=== PATIENT | male | born 1970 | race Caucasian/White ===

== ENCOUNTER 2021-08-19 03:52 | Emergency (ER) | payer BC, OTHER ==
[~2021-08-19] VITALS: Ht 172.7 cm; Wt 72.2 kg
[2021-08-19 04:07] LABS: HEMATOCRIT 38 % (40-54); MEAN PLATELET VOLUME 10.4 fL (9.0-12.2)
[2021-08-19 04:09] LABS: BASOPHILS % (AUTO) 1 % (0-10); EOSINOPHILS # (AUTO) 0.5 10^3/uL (0.0-0.3); EOSINOPHILS % (AUTO) 10 % (0-10); HEMOGLOBIN 12.9 g/dL (13.3-17.7); LYMPHOCYTES # (AUTO) 1.8 10^3/uL (1.0-4.0); LYMPHOCYTES % (AUTO) 32 % (12-44); MEAN CORPUSCULAR HEMOGLOBIN 31 pg (25-34); MEAN CORPUSCULAR HGB CONC 34 g/dL (32-36); MEAN CORPUSCULAR VOLUME 91 fL (80-99); MONOCYTES # (AUTO) 0.4 10^3/uL (0.0-1.0); MONOCYTES % (AUTO) 8 % (0-12); NEUTROPHILS # (AUTO) 2.7 10^3/uL (1.8-7.8); NEUTROPHILS % (AUTO) 49 % (42-75); PLATELET COUNT 210 10^3/uL (130-400); WHITE BLOOD COUNT 5.5 10^3/uL (4.3-11.0)
[2021-08-19] MEDS ORDERED: methylPREDNISolone 125 MG (Solu-MEDROL) VIAL IVP ONE (04:15)
[2021-08-19] MEDS ORDERED: diphenhydrAMINE 50 MG/ML INJ (BENADRYL) IVP ONE (04:15)
[2021-08-19 04:17] LABS: POTASSIUM 3.2 MMOL/L (3.6-5.0)
[2021-08-19 04:18] LABS: CALCIUM 9.3 MG/DL (8.5-10.1)
[2021-08-19 04:23] LABS: CREATININE SERUM 0.81 MG/DL (0.60-1.30)
[2021-08-19] MEDS ORDERED: POTASSIUM CL 10MEQ/50ML IVPB 50 ML IV ONE (04:45)
[2021-08-19] MEDS ORDERED: NS IV 1000 ML 1,000 ML IV SCH (04:45)
--- NOTE | 2021-08-19 05:50 | Diagnostic Imaging Report ---
INDICATION: Shortness of breath. FINDINGS: The heart size is normal. There is a patchy right basilar infiltrate. There is no pleural effusion or pneumothorax. The mediastinum is unremarkable. IMPRESSION: Patchy right basilar infiltrate possibly reflecting early pneumonia. Recommend clinical correlation. Dictated by: Dictated on workstation # [id number]
[2021-08-19] MEDS ORDERED: cefTRIAXone 1 GM PRE-MIX 50 ML IV STA (06:25)
[2021-08-19] MEDS ORDERED: AZITHROMYCIN 250 MG TAB (ZITHROMAX) PO STA (06:25)
[2021-08-19] MEDS ORDERED: RX-ALBUTEROL NEB 2.5 MG/3 ML PACK #5 IH STA (06:35)
[2021-08-19] MEDS ORDERED: PRD20T PO (06:41)
[2021-08-19] MEDS ORDERED: ALBU2.5V4 INH (06:41)
[2021-08-19] MEDS ORDERED: CEFD300C3 PO (06:41)
[2021-08-19] MEDS ORDERED: AZIT250T12 PO (06:41)
--- NOTE | 2021-08-19 06:42 | ED Respiratory ---
General Chief Complaint: Respiratory Problems Stated Complaint: ASTHMA Nursing Triage Note: History of asthma-Asthma attack this morning with out relief from typical medications Source: patient Exam Limitations: no limitations History of Present Illness Date Seen by Provider: August 19, 2021 Time Seen by Provider: 03:54 Initial Comments This 50-year-old gentleman presents to the emergency room with complaints of severe shortness of breath that started about an hour prior to arrival. He had some wheezing and cough when the extreme shortness of breath started. He denies any fever. He has history of asthma and his albuterol inhaler did not stop the wheezing or shortness of breath. He was noted to be hypoxic with oxygen saturation of 81% by EMS. This corrected with a DuoNeb treatment and oxygen administration. He was satting in the mid 90s on room air after completing his treatment. There is significantly decreased breath sounds in the right lung which had improved by the time of arrival. Wheezing was noted. Patient reports significant seasonal allergies. Allergies and Home Medications Allergies Coded Allergies: Penicillins (Verified Allergy, Unknown, 08/19/21) Amoxicillin well tolerated Patient Home Medication List Home Medication List Reviewed: Yes Albuterol Sulfate (Albuterol Sulfate) 2.5 Mg/3 Ml (0.083 %) Vial.neb, 2.5 MG INH Q4H PRN for WHEEZING Prescribed by: ROB SHEIKH on 08/19/21640 Azithromycin (Azithromycin) 250 Mg Tablet, 250 MG PO DAILY Prescribed by: ROB SHEIKH on 08/19/21640 Cefdinir (Cefdinir) 300 Mg Capsule, 300 MG PO BID Prescribed by: ROB SHEIKH on 08/19/21640 Prednisone (Prednisone) 20 Mg Tab, 40 MG PO DAILY Prescribed by: ROB SHEIKH on 08/19/21640 Review of Systems Review of Systems Constitutional: no symptoms reported EENTM: no symptoms reported Respiratory: see HPI Cardiovascular: no symptoms reported Gastrointestinal: no symptoms reported Genitourinary: no symptoms reported Musculoskeletal: no symptoms reported Skin: no symptoms reported Psychiatric/Neurological: No Symptoms Reported Hematologic/Lymphatic: No Symptoms Reported Past [id number]-[id number]-Qtfwlj Hx Patient Social History Tobacco Use?: No Use of E-Cig and/or Vaping dev: No Substance use?: No Alcohol Use?: Yes Alcohol Frequency: Once in a while Past Medical History Surgeries: No Respiratory: Yes Asthma Currently Using CPAP: No Cardiac: No Neurological: No Genitourinary: No Gastrointestinal: No Musculoskeletal: No Endocrine: No HEENT: No Cancer: No Psychosocial: No Integumentary: No Physical Exam Vital Signs - First Documented 08/19/21 03:55 Temp 35.9 Pulse 88 Resp 24 B/P (MAP) 133/79 (97) Pulse Ox 95 O2 Delivery Simple Mask Capillary Refill : Less Than 3 Seconds Height: '" Weight: lbs. oz. 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, no motor/sensory deficits, alert, normal mood/affect, oriented x 3 Skin: normal color, warm/dry Progress/Results/Core Measures Suspected Sepsis SIRS Temperature: Pulse: 88 Respiratory Rate: 24 Laboratory Tests 08/19/21 04:01: White Blood Count 5.5 Blood Pressure 133 /79 Mean: 97 Laboratory Tests 08/19/21 04:01: Creatinine 0.81, Platelet Count 210 Results/Orders Lab Results Laboratory Tests Test 08/19/21 04:01 08/19/21 04:17 Range/Units White Blood Count 5.5 4.3-11.0 10^3/uL Red Blood Count 4.19 L 4.30-5.52 10^6/uL Hemoglobin 12.9 L 13.3-17.7 g/dL Hematocrit 38 L 40-54 % Mean Corpuscular Volume 91 80-99 fL Mean Corpuscular Hemoglobin 31 25-34 pg Mean Corpuscular Hemoglobin Concent 34 32-36 g/dL Red Cell Distribution Width 13.6 10.0-14.5 % Platelet Count 210 130-400 10^3/uL Mean Platelet Volume 10.4 9.0-12.2 fL Immature Granulocyte % (Auto) 0 % Neutrophils (%) (Auto) 49 42-75 % Lymphocytes (%) (Auto) 32 12-44 % Monocytes (%) (Auto) 8 0-12 % Eosinophils (%) (Auto) 10 0-10 % Basophils (%) (Auto) 1 0-10 % Neutrophils # (Auto) 2.7 1.8-7.8 10^3/uL Lymphocytes # (Auto) 1.8 1.0-4.0 10^3/uL Monocytes # (Auto) 0.4 0.0-1.0 10^3/uL Eosinophils # (Auto) 0.5 H 0.0-0.3 10^3/uL Basophils # (Auto) 0.0 0.0-0.1 10^3/uL Immature Granulocyte # (Auto) 0.0 0.0-0.1 10^3/uL Percent Immature Platelet Fraction 5.6 0.0-7.6 % Sodium Level 134 L 135-145 MMOL/L Potassium Level 3.2 L 3.6-5.0 MMOL/L Chloride Level 100 98-107 MMOL/L Carbon Dioxide Level 19 L 21-32 MMOL/L Anion Gap 15 H 5-14 MMOL/L Blood Urea Nitrogen 7 7-18 MG/DL Creatinine 0.81 0.60-1.30 MG/DL Estimat Glomerular Filtration Rate 109 BUN/Creatinine Ratio 9 Glucose Level 120 H 70-105 MG/DL Calcium Level 9.3 8.5-10.1 MG/DL C-Reactive Protein High Sensitivity 3.00 H 0.00-0.50 MG/DL Influenza Type A (RT-PCR) Not Detected Not Detecte Influenza Type B (RT-PCR) Not Detected Not Detecte SARS-CoV-2 RNA (RT-PCR) Not Detected Not Detecte My Orders Orders - ROB MCGEE MD Chest 1 View, Ap/Pa Only (08/19/21 03:54) Basic Metabolic Panel (08/19/21 04:00) Cbc With Automated Diff (08/19/21 04:00) Hs C Reactive Protein (08/19/21 04:00) Methylprednisolone Sod Succ (Solu-Medrol (08/19/21 04:15) Diphenhydramine Injection (Benadryl Inje (08/19/21 04:15) Covid 19 Inhouse Test (08/19/21 04:06) Influenza A And B By Pcr (08/19/21 04:06) Ed Iv/Invasive Line Start (08/19/21 04:44) Ns Iv 1000 Ml (Sodium Chloride 0.9%) (08/19/21 04:45) Potassium Cl 10meq/50ml Ivpb (Kcl 10 Meq (08/19/21 04:45) Ceftriaxone 1 Gm Pre-Mix (Rocephin 1 Gm (08/19/21 06:25) Azithromycin Tablet (Zithromax Tablet) (08/19/21 06:25) Rx-Albuterol Nebs (Rx-Proventil Nebs) (08/19/21 06:35) Medications Given in ED Current Medications Medications Dose Ordered Sig/Gretchen Route Start Time Stop Time Status Last Admin Dose Admin Diphenhydramine HCl 25 mg ONCE ONCE IVP 08/19/21 04:15 08/19/21 04:16 DC 08/19/21 04:24 25 MG Methylprednisolone Sodium Succinate 125 mg ONCE ONCE IVP 08/19/21 04:15 08/19/21 04:16 DC 08/19/21 04:24 125 MG Potassium Chloride 50 ml @ 50 mls/hr ONCE ONCE IV 08/19/21 04:45 08/19/21 05:44 DC 08/19/21 05:17 50 MLS/HR Vital Signs/I&O 08/19/21 03:55 Temp 35.9 Pulse 88 Resp 24 B/P (MAP) 133/79 (97) Pulse Ox 95 O2 Delivery Simple Mask Capillary Refill : Less Than 3 Seconds Blood Pressure Mean: 97 Progress Note : Progress Note Respiratory status remained stable. He was satting 93% on room air while asleep. He felt much better. He was treated with Solu-Medrol, Rocephin, and azithromycin. He felt comfortable being discharged home. See discharge instructions for further discussion. Diagnostic Imaging Diagonstic Imaging: Xray Plain Films/CT/US/NM/MRI: chest Comments Chest x-ray viewed by me and report reviewed. See report below: NAME: KENDRA TERRELL MED REC#: [id number] PT STATUS: REG ER : 1970 PHYSICIAN: ROB MCGEE MD ADMIT DATE: 08/19/21/ER Draft Date of Exam:08/19/21 CHEST 1 VIEW, AP/PA ONLY INDICATION: Shortness of breath. FINDINGS: The heart size is normal. There is a patchy right basilar infiltrate. There is no pleural effusion or pneumothorax. The mediastinum is unremarkable. IMPRESSION: Patchy right basilar infiltrate possibly reflecting early pneumonia. Recommend clinical correlation. Dictated on workstation # [id number] Dict: 08/19/21 0413 Trans: 08/19/21 0550 IRVIN [id number] Interpreted by: JHON ALLAN MD Departure Impression Primary Impression: Right lower lobe pneumonia Qualified Codes: J18.9 - Pneumonia, unspecified organism Additional Impression: Asthma exacerbation Qualified Codes: J45.901 - Unspecified asthma with (acute) exacerbation Disposition: HOME, SELF-CARE Condition: Improved Departure-Patient Inst. Decision time for Depature: 06:38 Referrals: URSULA CALLEJAS DO (PCP/Family) Primary Care Physician Patient Instructions: Asthma in Adults, Pneumonia, Adult ED Add. Discharge Instructions: You may use your inhaler as previously prescribed or your albuterol nebulizer treatments every 4 hours as needed for shortness of breath or wheezing. 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 Start your antibiotics within 24 hours of receiving antibiotics in the emergency room. Consider taking a long-acting antihistamine such as Claritin (loratadine) daily during allergy season to help combat asthma exacerbations. Monitor your oxygen saturations at home, especially if you are feeling short of breath. If you are having repeated or persistent oxygen saturations below 93% or if you are having any oxygen saturations less than 90%, please return to the emergency room. Contact your primary care provider on Friday to arrange a follow-up appointment. Return to the emergency room if you have any other worsening of condition d espite following these instructions. All discharge instructions reviewed with patient and/or family. Voiced understanding. Scripts Albuterol Sulfate (Albuterol Sulfate) 2.5 Mg/3 Ml (0.083 %) Vial.neb 2.5 MG INH Q4H PRN for WHEEZING, #50 EA 1 Refill Prov: ROB MCGEE MD 08/19/21 Cefdinir (Cefdinir) 300 Mg Capsule 300 MG PO BID, #14 CAP 0 Refills Prov: ROB MCGEE MD 08/19/21 Azithromycin (Azithromycin) 250 Mg Tablet 250 MG PO DAILY, #4 TAB 0 Refills Prov: ROB MGCEE MD 08/19/21 Prednisone (Prednisone) 20 Mg Tab 40 MG PO DAILY, #6 TAB 0 Refills Prov: ROB MCGEE MD 08/19/21 Copy Copies To 1: URSULA CALLEJAS JOSHUA T MD August 19, 2021 06:42
[2021-08-19 08:06] VITALS: BP 127/82
== END 2021-08-19 08:00 | disposition home or self-care (01) ==
LOC: EDUNIT# 03:52 → ER 03:54
DX: J18.9 Pneumonia, unspecified organism (principal); J45.901 Unspecified asthma with (acute) exacerbation; Z20.822 Contact with and (suspected) exposure to COVID-19; Z79.899 Other long term (current) drug therapy
CPT/HCPCS: 36415; 71045; 80048; 85025; 86141; 87636